=== PATIENT | male | born 2000 | race Caucasian/White ===

== ENCOUNTER 2021-08-31 18:29 | Emergency (ER) | payer SELFPAY ==
[2021-08-31] MEDS ORDERED: HYDROCODONE/APAP 7.5/325 MG TAB ONE (18:49)
[2021-08-31] MEDS ORDERED: IBUPROFEN 400 MG TAB ONE (18:49)
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
[2021-08-31] MEDS ORDERED: TETANUS & DIPHTHERIA TOX,ADULT 0.5 ML VIAL ONE (20:11)
[2021-08-31 20:36] VITALS: BP 128/75; TEMP 98; O2SAT 100
== END 2021-08-31 20:28 | disposition home or self-care (01) ==
LOC: ER 18:29
DX: T23.251A Burn of second degree of right palm, initial encounter (principal); T31.0 Burns involving less than 10% of body surface; X00.1XXA Exposure to smoke in uncontrolled fire in building or structure, initial encounter; Z23 Encounter for immunization
CPT/HCPCS: 90471; 90714; 99283